=== PATIENT | female | born 1950 | race Caucasian/White ===

== ENCOUNTER 2022-02-05 12:34 | Emergency (ER) | payer MEDICARE, BC ==
[~2022-02-05] VITALS: Ht 182.9 cm; Wt 83.9 kg
[2022-02-05] MEDS ORDERED: AMBIEN5 MG PO (13:45)
[2022-02-05] MEDS ORDERED: ZOLPIDEM TARTRA10 MG PO (13:47)
[2022-02-05] MEDS ORDERED: OXYC5 PO (13:47)
[2022-02-05] MEDS ORDERED: PRED FORTE5 M1 RIGHTEYE (14:27)
== END 2022-02-05 14:37 | disposition home or self-care (01) ==
LOC: ER 12:34
DX: S01.411A Laceration without foreign body of right cheek and temporomandibular area, initial encounter (principal); H20.9 Unspecified iridocyclitis; Z88.0 Allergy status to penicillin; W19.XXXA Unspecified fall, initial encounter
CPT/HCPCS: 70486